=== PATIENT | male | born 1955 | race Two or more races ===

== ENCOUNTER 2016-07-17 19:32 | Emergency (ER) | payer OTHER ==
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
[~2016-07-17 19:32] MED LIST: FLEXERIL10 MG PO; NAPROSYN500 MG PO
== END 2016-07-17 19:58 | disposition home or self-care (01) ==
LOC: CFTX 19:32
DX: S39.012A Strain of muscle, fascia and tendon of lower back, initial encounter (principal); F17.200 Nicotine dependence, unspecified, uncomplicated; V89.2XXA Person injured in unspecified motor-vehicle accident, traffic, initial encounter; Y92.410 Unspecified street and highway as the place of occurrence of the external cause
CPT/HCPCS: 70450; 72100; 99284; J1885